=== PATIENT | male | born 1995 | race Caucasian/White ===

== ENCOUNTER 2018-07-22 08:06 | Emergency (ER) | payer OTHER ==
[2018-07-22] MEDS ORDERED: DEXAMETHASONE 10 MG/ML VIAL PO STA (09:06)
[2018-07-22] MEDS ORDERED: BENZOCAINE/MENTHOL LOZENGE MM STA (09:07)
[2018-07-22] MEDS ORDERED: AMOXICILLIN 250 MG CAPSULE PO STA (09:07)
--- NOTE | 2018-07-22 09:09 | ED Physician Documentation ---
History of Present Illness - Stated complaint Stated Complaint: THROAT PX - Chief complaint Chief Complaint: General - Additonal information Additional information: hx from pt healthy AD Cliff male sick for a few weeks with sneezing and cough and congestion s/p visiting family in [place] but more recently since yesterday severe sore throat no abd pain loose stools s diarrhea no NV no rash Review of Systems Constitutional: reports: Myalgias. denies: Fever Throat: reports: Sore throat Respiratory: reports: Cough GI: denies: Abdominal Pain, Nausea, Vomiting, Diarrhea (loose), Bloody / black stool Skin: denies: Rash Immunocompromised: denies: Immunocompromised PD PAST MEDICAL HISTORY - Past Medical History Past Medical History: Yes Psych: Depression, Anxiety - Past Surgical History Past Surgical History: No - Present Medications Home Medications: Ambulatory Orders Medication Instructions Recorded Confirmed Amoxicillin 500 mg PO Q8H #30 capsule 07/22/18 FLUoxetine [PROzac] 10 mg PO DAILY 07/22/18 07/22/18 Methylphenidate HCl [Concerta] 36 mg PO DAILY 07/22/18 07/22/18 - Allergies Allergies/Adverse Reactions: Allergies Allergy/AdvReac Type Severity Reaction Status Date / Time No Known Drug Allergies Allergy Verified 07/22/18 08:23 - Social History Does the pt smoke?: No Smoking Status: Never smoker Does the pt drink ETOH?: No Does the pt have substance abuse?: No - Immunizations Immunizations are current?: Yes - POLST Patient has POLST: No PD ED PE NORMAL - Vitals Vital signs reviewed: Yes - General General: Alert and oriented X 3 - HEENT HEENT: PERRL, Ears normal, Moist mucous membranes. No: Pharynx benign (marked erythema and moderate swelling, no pain with tracheal manipulation + ant cervical adenopathy) - Neck Neck: Supple, no meningeal sign - Cardiac Cardiac: RRR - Respiratory Respiratory: No respiratory distress, Clear bilaterally - Abdomen Abdomen: Soft, Non tender - Derm Derm: No rash - Neuro Neuro: Alert and oriented X 3 Results - Vitals Vitals: Vital Signs - 24 hr 07/22/18 08:14 Temperature 37 C Heart Rate 109 H Blood Pressure 129/76 O2 Saturation 96 - Labs Labs: Laboratory Tests 07/22/18 07/22/18 08:25 08:25 Influenza A (Rapid) Negative Influenza B (Rapid) Negative Group A Strep Rapid POSITIVE H PD MEDICAL DECISION MAKING - Sepsis Event Vital Signs: Vital Signs - 24 hr 07/22/18 08:14 Temperature 37 C Heart Rate 109 H Blood Pressure 129/76 O2 Saturation 96 Departure - Departure Disposition: 01 Home, Self Care Clinical Impression: Strep pharyngitis Condition: Good Instructions: ED Strep Pharyngitis Conf Follow-Up: [facility] [Provider Group] Prescriptions: Amoxicillin 500 mg PO Q8H #30 capsule Comments: The dose of steroid given in the ER will help decrease the pain and swelling until the antibiotic takes effect Motrin and tylenol as needed for pain and fever - throat lozenges or cepacol spray may help the sore throat too Drink plenty of fluids Follow up [facility] if not improving in 3 days Return if worse Forms: Activity restrictions
[2018-07-22] MEDS ORDERED: ACETAMINOPHEN 325 MG TABLET PO STA (09:39)
[2018-07-22 09:42] VITALS: BP 134/65
== END 2018-07-22 10:17 | disposition home or self-care (01) ==
LOC: ED 08:06
DX: J02.0 Streptococcal pharyngitis (principal)
CPT/HCPCS: 87275; 87276; 87430; 99282; 99283; A9270

== ENCOUNTER 2018-07-24 16:44 | Emergency (ER) | payer OTHER ==
[2018-07-24 16:55] VITALS: BP 124/71
--- NOTE | 2018-07-24 17:22 | ED Physician Documentation ---
History of Present Illness - Stated complaint Stated Complaint: DIZZINESS - Chief complaint Chief Complaint: General - History obtained from History obtained from: Patient - History of Present Illness Timing: Today - Additonal information Additional information: 22 y/o male who has recently been treated for strep has developed acute dizziness with room spinning, head spinning and object spinning with intermittent nausea. He has not vomited and he has been hydrating well. He has some improvement in the pain. Review of Systems Constitutional: reports: Fever, Chills, Myalgias, Fatigue, Sweats Eyes: denies: Decreased vision Ears: reports: Tinnitus/ringing. denies: Ear pain Nose: reports: Congestion Throat: reports: Sore throat Cardiac: denies: Chest pain / pressure, Palpitations Respiratory: reports: Cough. denies: Dyspnea GI: reports: Nausea. denies: Abdominal Pain, Vomiting : denies: Dysuria, Frequency Skin: denies: Rash Musculoskeletal: denies: Neck pain, Back pain PD PAST MEDICAL HISTORY - Past Medical History Past Medical History: No Psych: Depression, Anxiety - Past Surgical History Past Surgical History: No - Present Medications Home Medications: Ambulatory Orders Medication Instructions Recorded Confirmed Amoxicillin 500 mg PO Q8H #30 capsule 07/22/18 FLUoxetine [PROzac] 10 mg PO DAILY 07/22/18 07/22/18 Methylphenidate HCl [Concerta] 36 mg PO DAILY 07/22/18 07/22/18 Meclizine HCl [Bonine] 25 mg PO Q6HR PRN #20 tab.chew 07/24/18 - Allergies Allergies/Adverse Reactions: Allergies Allergy/AdvReac Type Severity Reaction Status Date / Time No Known Drug Allergies Allergy Verified 07/24/18 16:55 - Social History Does the pt smoke?: No Smoking Status: Never smoker Does the pt drink ETOH?: No Does the pt have substance abuse?: No - Immunizations Immunizations are current?: Yes - POLST Patient has POLST: No PD ED PE NORMAL - Vitals Vital signs reviewed: Yes (normal ) - General General: Alert and oriented X 3, No acute distress, Well developed/nourished - HEENT HEENT: Atraumatic, PERRL, EOMI, Other (There is cerumen bilaterally and this is removed from the right ear and this improves the patients symptoms immediately with decreased dizziness. The TM is inflamed the TM on the left side and not the right. There is no nystagmus after removal of the cerumen. The pharynx is with erythema and appears angry.) - Neck Neck: Supple, no meningeal sign, No bony TTP - Cardiac Cardiac: RRR, No murmur - Respiratory Respiratory: No respiratory distress, Clear bilaterally - Abdomen Abdomen: Soft, Non tender - Derm Derm: Normal color, Warm and dry, No rash - Extremities Extremities: No deformity, No edema - Neuro Neuro: Alert and oriented X 3, enrollment services dean 2-12 intact, No motor deficit, No sensory deficit, Normal speech Eye Opening: Spontaneous Motor: Obeys Commands Verbal: Oriented GCS Score: 15 - Psych Psych: Normal mood, Normal affect Results - Vitals Vitals: Vital Signs - 24 hr 07/24/18 16:50 Temperature 36.5 C Heart Rate 81 Respiratory 16 Rate Blood Pressure 124/71 O2 Saturation 97 Oxygen O2 Source Room air PD MEDICAL DECISION MAKING - ED course Complexity details: reviewed old records, reviewed results, re-evaluated patient, considered differential, d/w patient ED course: 22-year-old male with a recent diagnosis of strep pharyngitis is on the appropriate antibiotic and he has developed some labyrinthitis and has otitis on exam. His symptoms seem to improve after cerumen was removed from the right ear. We will provide him with some meclizine and a note for 2 more days of work relief. - Sepsis Event Vital Signs: Vital Signs - 24 hr 07/24/18 16:50 Temperature 36.5 C Heart Rate 81 Respiratory 16 Rate Blood Pressure 124/71 O2 Saturation 97 Oxygen O2 Source Room air Departure - Departure Disposition: 01 Home, Self Care Clinical Impression: Labyrinthitis, acute Qualifiers: Laterality: right Qualified Code(s): H83.01 - Labyrinthitis, right ear Condition: Stable Instructions: ED Labyrinthitis Follow-Up: [facility] [Provider Group] Prescriptions: Meclizine HCl [Bonine] 25 mg PO Q6HR PRN #20 tab.chew PRN Reason: Dizziness Forms: Activity restrictions
== END 2018-07-24 17:37 | disposition home or self-care (01) ==
LOC: ED 16:44
DX: H83.01 Labyrinthitis, right ear (principal); H61.21 Impacted cerumen, right ear
CPT/HCPCS: 69210; 99283

== ENCOUNTER 2018-07-29 18:52 | Emergency (ER) | payer OTHER ==
--- NOTE | 2018-07-29 21:20 | ED Physician Documentation ---
PD HPI HEENT - Stated complaint Stated Complaint: MARIA/EAR PX - Chief complaint Chief Complaint: Heent - History obtained from History obtained from: Patient - History of Present Illness Timing - onset: How many days ago (he has had ear and throat pain and was Dx with strep and otitis. On Amox, but has not had improvement. States having marked pain at times in both ears, mostly left. Some ringing in ear today. No general headache.) Timing - details: Gradual onset, Still present, Waxing and waning Location: Right ear, Left ear. No: Sinuses, Throat Associated symptoms: Fever. No: Congestion, Rhinorrhea, Headache, Cough Similar symptoms before: Has not had sx before Recently seen: Emergency Dept Review of Systems Constitutional: reports: Fever, Myalgias Ears: reports: Ear pain, Tinnitus/ringing. denies: Drainage/discharge Nose: reports: Sinus pressure / pain. denies: Rhinorrhea / runny nose, Congestion Throat: denies: Dental pain / toothache, Oral lesions / sores, Sore throat Respiratory: denies: Cough GI: denies: Nausea, Diarrhea Skin: denies: Rash, Lesions PD PAST MEDICAL HISTORY - Past Medical History Cardiovascular: None Respiratory: None Neuro: None Endocrine/Autoimmune: None GI: None : None HEENT: None Psych: Depression, Anxiety, ADD/ADHD Musculoskeletal: None Derm: None - Past Surgical History Past Surgical History: No - Present Medications Home Medications: Ambulatory Orders Medication Instructions Recorded Confirmed Amoxicillin 500 mg PO Q8H #30 capsule 07/22/18 FLUoxetine [PROzac] 10 mg PO DAILY 07/22/18 07/22/18 Methylphenidate HCl [Concerta] 36 mg PO DAILY 07/22/18 07/22/18 Azithromycin [Zithromax] 250 mg PO DAILY #6 tablet 07/29/18 Dexamethasone [Decadron] 4 mg PO DAILY #5 tablet 07/29/18 HYDROcod/ACETAM 5/325 [Hibbs 5/325] 1 tab PO Q6H PRN #15 tablet 07/29/18 - Allergies Allergies/Adverse Reactions: Allergies Allergy/AdvReac Type Severity Reaction Status Date / Time No Known Drug Allergies Allergy Verified 07/29/18 18:59 - Social History Does the pt smoke?: No Smoking Status: Never smoker Does the pt drink ETOH?: Yes Does the pt have substance abuse?: No - Immunizations Immunizations are current?: Yes - POLST Patient has POLST: No PD ED PE NORMAL - Vitals Vital signs reviewed: Yes - General General: Alert and oriented X 3, Well developed/nourished - HEENT HEENT: Pharynx benign. No: Ears normal (both ears have redness and bulging appearance of TM. Mastoid areas without redness nor tenderness to percussion. Right posterior adenopathy. ) - Neck Neck: Supple, no meningeal sign - Cardiac Cardiac: RRR, No murmur - Respiratory Respiratory: Clear bilaterally - Derm Derm: Normal color, Warm and dry, No rash Results - Vitals Vitals: Oxygen O2 Source Room air PD MEDICAL DECISION MAKING - ED course Complexity details: reviewed old records, considered differential (persistent otitis despite Amox. Ear findings are mild compared to degree of pain he describes. No signs of mastoiditis or such. ), d/w patient - Sepsis Event Vital Signs: Oxygen O2 Source Room air Departure - Departure Disposition: Home, Self Care Clinical Impression: Otitis media Qualifiers: Otitis media type: suppurative Chronicity: acute Laterality: bilateral Recurrence: recurrent Spontaneous tympanic membrane rupture: without spontaneous rupture Qualified Code(s): H66.006 - Acute suppurative otitis media without spontaneous rupture of ear drum, recurrent, bilateral Condition: Stable Record reviewed to determine appropriate education?: Yes Instructions: ED Otitis Media Acute Adult Follow-Up: [facility] [Provider Group] Prescriptions: Azithromycin [Zithromax] 250 mg PO DAILY #6 tablet Dexamethasone [Decadron] 4 mg PO DAILY #5 tablet HYDROcod/ACETAM 5/325 [Hibbs 5/325] 1 tab PO Q6H PRN #15 tablet PRN Reason: Pain Comments: Stop the amoxicillin if you are still on it. Change to Zithromax antibiotic as the ear infections appear to be still persisting despite the first antibiotic. Add Decadron steroid anti-inflammatory for the next 5 days. Add Tylenol or hydrocodone if needed for pain. You can use some ibuprofen twice daily as well. Rest off work for 1-2 days. Recheck with your primary if not improved over the next couple of days. Forms: Activity restrictions Discharge Date/Time: 07/29/18 22:19
[2018-07-29] MEDS ORDERED: AZITHROMYCIN 250 MG TABLET PO STA (21:54)
[2018-07-29] MEDS ORDERED: HYDROcod/ACETAM 5/325 MG TABLET PO STA (21:54)
[2018-07-29] MEDS ORDERED: DEXAMETHASONE 10 MG/ML VIAL PO STA (21:54)
[2018-07-29 22:18] VITALS: BP 133/88
== END 2018-07-29 22:19 | disposition home or self-care (01) ==
LOC: ED 18:52
DX: H66.006 Acute suppurative otitis media without spontaneous rupture of ear drum, recurrent, bilateral (principal)
CPT/HCPCS: 99283; A9270

== ENCOUNTER 2019-02-12 21:38 | Emergency (ER) | payer OTHER ==
[2019-02-12 21:45] VITALS: BP 145/69
--- NOTE | 2019-02-12 21:46 | ED Physician Documentation ---
PD HPI ABD PAIN - Stated complaint Stated Complaint: LT SIDE TENDERNESS - Chief complaint Chief Complaint: General - History obtained from History obtained from: Patient - History of Present Illness Timing - onset: How many days ago (3) Timing - duration: Days (3) Timing - details: Gradual onset Pain level max: 8 Pain level now: 0 Quality: Pain Location: Other (left chest (immediately posterior to left nipple/areola)) Recently seen: Not recently seen - Additional information Additional information: 3 days ago, noticed mildly tender swelling under surface of left areola/nipple. This rapidly increased in size, and became exquisitely tender with mild discoloration over the ensuing 2 days, although today the symptoms have greatly improved. There is still a palpable, mildly tender mass but it is no longer discolored and far less painful/tender than yesterday. Denies injury, denies h/o similar symptoms Review of Systems Constitutional: denies: Fever Skin: reports: Lesions PD PAST MEDICAL HISTORY - Past Medical History Cardiovascular: None Respiratory: None Neuro: None Endocrine/Autoimmune: None GI: None : None HEENT: None Psych: Depression, Anxiety, ADD/ADHD Musculoskeletal: None Derm: None - Past Surgical History Past Surgical History: No - Present Medications Home Medications: Ambulatory Orders Medication Instructions Recorded Confirmed Methylphenidate HCl [Concerta] 36 mg PO DAILY 07/22/18 07/22/18 Cephalexin [Keflex] 500 mg PO Q6H #27 capsule 02/12/19 - Allergies Allergies/Adverse Reactions: Allergies Allergy/AdvReac Type Severity Reaction Status Date / Time No Known Drug Allergies Allergy Verified 07/29/18 18:59 - Social History Does the pt smoke?: No Smoking Status: Never smoker Does the pt drink ETOH?: Yes Does the pt have substance abuse?: No - Immunizations Immunizations are current?: Yes - POLST Patient has POLST: No PD ED PE NORMAL - Vitals Vital signs reviewed: Yes - General General: Alert and oriented X 3, No acute distress, Well developed/nourished PD ED PE EXPANDED - Derm Derm: Other (approximately 1 cm diameter nodule palpated subcutaneous to left nipple and areola with mild tenderenss, no fluctuance, and no erythema) Results - Vitals Vitals: Vital Signs - 24 hr 02/12/19 21:41 Temperature 36.6 C Heart Rate 82 Respiratory 16 Rate Blood Pressure 145/69 H O2 Saturation 99 Oxygen O2 Source Room air PD MEDICAL DECISION MAKING - ED course Complexity details: considered differential, d/w patient Departure - Departure Disposition: 01 Home, Self Care Clinical Impression: Infected cyst of skin Condition: Good Instructions: ED Cyst Sebaceous Infec Abx Tx Follow-Up: [facility] [Provider Group] Prescriptions: Cephalexin [Keflex] 500 mg PO Q6H #27 capsule Discharge Date/Time: 02/12/19 22:10
[2019-02-12] MEDS ORDERED: cephALEXin 250 MG CAPSULE PO STA (22:01)
== END 2019-02-12 22:10 | disposition home or self-care (01) ==
LOC: ED 21:38
DX: L72.8 Other follicular cysts of the skin and subcutaneous tissue (principal); L08.9 Local infection of the skin and subcutaneous tissue, unspecified
CPT/HCPCS: 99283; A9270

== ENCOUNTER 2019-12-21 16:50 | Emergency (ER) | payer OTHER ==
--- NOTE | 2019-12-21 17:09 | ED Physician Documentation ---
PD HPI LOWER EXT INJURY - Stated complaint Stated Complaint: LT KNEE INJ - Chief complaint Chief Complaint: Trauma Ext - History obtained from History obtained from: Patient - History of Present Illness PD HPI LOW EXT INJURY LOCATION: Left, Knee Type of injury: Twist Where injury occurred: Home Timing - onset: Yesterday Timing - details: Abrupt onset Pain level max: 7 Pain level now: 6 Improved by: Rest, Ice, Immobilization Worsened by: Moving, Palpating Associated symptoms: No: Weakness, Numbness, Tingling, Swelling, Discolored Similar symptoms before: Has not had sx before Recently seen: Not recently seen Review of Systems Constitutional: denies: Fever, Chills Skin: denies: Rash Musculoskeletal: denies: Neck pain, Back pain Neurologic: denies: Headache PD PAST MEDICAL HISTORY - Past Medical History Cardiovascular: None Respiratory: None Neuro: None Endocrine/Autoimmune: None GI: None : None HEENT: None Psych: Depression, Anxiety, ADD/ADHD Musculoskeletal: None Derm: None - Past Surgical History Past Surgical History: No HEENT: Tonsil/Adenoidectomy - Present Medications Home Medications: Ambulatory Orders Medication Instructions Recorded Confirmed Methylphenidate HCl [Concerta] 36 mg PO DAILY 07/22/18 12/21/19 - Allergies Allergies/Adverse Reactions: Allergies Allergy/AdvReac Type Severity Reaction Status Date / Time No Known Drug Allergies Allergy Verified 12/21/19 16:53 - Social History Does the pt smoke?: No Smoking Status: Never smoker Does the pt drink ETOH?: Yes Does the pt have substance abuse?: No - Immunizations Immunizations are current?: Yes - POLST Patient has POLST: No PD ED PE NORMAL - Vitals Vital signs reviewed: Yes - General General: Alert and oriented X 3, No acute distress - HEENT HEENT: Moist mucous membranes - Neck Neck: Supple, no meningeal sign - Derm Derm: Warm and dry - Extremities Extremities: Other (L knee - mild MCL laxity, LCL, ACL, PCL intact. mild effusion. unable to tolerate meniscus testing. NVI) - Neuro Neuro: Alert and oriented X 3 Results - Vitals Vitals: Vital Signs - 24 hr 12/21/19 12/21/19 16:54 18:17 Temperature 36.6 C 37 C Heart Rate 96 91 Respiratory 16 12 Rate Blood Pressure 135/72 H 128/74 O2 Saturation 100 97 Oxygen O2 Source Room air - Rads (name of study) L knee xray Radiology: Prelim report reviewed, EMP read contemporaneously, See rad report (Normal knee x-ray) PD MEDICAL DECISION MAKING - ED course Complexity details: reviewed results, re-evaluated patient, considered differential, d/w patient ED course: Patient with what appears to be a knee sprain. Placed in an articulating knee brace. Ambulating well. Patient counseled regarding signs and symptoms for which I believe and urgent re-evaluation would be necessary. Patient with good understanding of and agreement to plan and is comfortable going home at this time This document was made in part using voice recognition software. While efforts are made to proofread this document, sound alike and grammatical errors may occur. Departure - Departure Disposition: 01 Home, Self Care Clinical Impression: Left knee sprain Qualifiers: Encounter type: initial encounter Involved ligament of knee: unspecified ligament Qualified Code(s): S83.92XA - Sprain of unspecified site of left knee, initial encounter Condition: Good Instructions: ED Sprain Knee Follow-Up: [facility] [Primary Care Provider] - Within 1 week Comments: Your x-ray does not show any acute abnormalities today. It appears that you have sprained your medial collateral ligament. Follow-up with your doctor for further care. Use the brace to help with the stability. You can use Motrin or Tylenol as needed for pain. Discharge Date/Time: 12/21/19 18:18
--- NOTE | 2019-12-21 17:42 | XRAY Report ---
Reason: L knee twist yesterday, medial pain Procedure Date: 12/21/2019 Accession Number: [id number] / [id number] Procedure: XR - Knee 4 View LT CPT Code: Final Report FULL RESULT: EXAM: LEFT KNEE RADIOGRAPHY EXAM DATE: 12/21/2019 05:23 PM. CLINICAL HISTORY: Left medial knee pain after twisting injury yesterday COMPARISON: None. TECHNIQUE: 4 views. FINDINGS: Bones: No fracture or bone lesion. Joints: Normal alignment. Joint spaces are maintained. No effusion. Soft Tissues: Normal. No soft tissue swelling. IMPRESSION: Normal knee radiography. [facility]
[2019-12-21 18:18] VITALS: BP 128/74
== END 2019-12-21 18:18 | disposition home or self-care (01) ==
LOC: ED 16:50
DX: S83.92XA Sprain of unspecified site of left knee, initial encounter (principal); X50.1XXA Overexertion from prolonged static or awkward postures, initial encounter; Y92.000 Kitchen of unspecified non-institutional (private) residence as the place of occurrence of the external cause
CPT/HCPCS: 99283; 99284

== ENCOUNTER 2020-02-14 11:07 | Emergency (ER) | payer OTHER ==
--- NOTE | 2020-02-14 11:13 | ED Physician Documentation ---
PD HPI URI - Stated complaint Stated Complaint: SORE THROAT - History obtained from History obtained from: Patient - History of Present Illness Timing - onset: How many days ago (2) Timing duration: Days (2) Timing details: Abrupt onset, Still present (The patient states he has had some sinus congestion and nasal drainage and a little bit of a tickle cough. He also has had some 1 or 2 drinks of alcohol on and states he vomited shortly after that. He noted some discomfort in the throat and the following day still had a sore throat with swallowing and noted some specks of blood in his sputum clear in his throat and with a mild cough. That happened again this morning. He was concerned about it. He denied vomiting per se nor a deep cough but seemed to be hurting just in the back of his throat. He states it feels like swallowing razor blades when he swallows.) Associated symptoms: Nasal congestion, Sore throat. No: Fever, Dry cough Contributing factors: Other (He does feel he has an element of environmental allergies and has had some sinus congestion and postnasal drip. He is concerned he is getting irritation of the throat from chemical exposures at work and states he is given just very simple facemask when exposed to the chemicals.). No: Sick contact, Travel Worsened by: Other (swallowing) Recently seen: Not recently seen Review of Systems Constitutional: denies: Fever, Chills Nose: reports: Rhinorrhea / runny nose, Sinus pressure / pain Throat: reports: Sore throat Respiratory: denies: Dyspnea, Cough GI: denies: Nausea, Vomiting, Bloody / black stool Skin: denies: Rash, Lesions PD PAST MEDICAL HISTORY - Past Medical History Cardiovascular: None Respiratory: None Neuro: None Endocrine/Autoimmune: None GI: None : None HEENT: None Psych: Depression, Anxiety, ADD/ADHD Musculoskeletal: None Derm: None - Past Surgical History Past Surgical History: No HEENT: Tonsil/Adenoidectomy - Present Medications Home Medications: Ambulatory Orders Medication Instructions Recorded Confirmed Methylphenidate HCl [Concerta] 36 mg PO DAILY 07/22/18 02/14/20 Cetirizine [ZyrTEC] 10 mg PO 02/14/20 Cetirizine [ZyrTEC] 10 mg PO DAILY #30 tablet 02/14/20 Lidocaine Viscous 2% [Xylocaine 5 ml PO Q4H PRN #100 ml 02/14/20 Viscous 2%] dexAMETHasone [Decadron] 4 mg PO DAILY #5 tablet 02/14/20 - Allergies Allergies/Adverse Reactions: Allergies Allergy/AdvReac Type Severity Reaction Status Date / Time No Known Drug Allergies Allergy Verified 02/14/20 11:20 - Social History Does the pt smoke?: No Smoking Status: Never smoker Does the pt drink ETOH?: Yes Does the pt have substance abuse?: No - Immunizations Immunizations are current?: Yes - POLST Patient has POLST: No PD ED PE NORMAL - Vitals Vital signs reviewed: Yes - General General: Alert and oriented X 3, No acute distress (He does appear uncomfortable with swallowing.), Well developed/nourished - HEENT HEENT: Ears normal. No: Pharynx benign (There is some redness in the posterior pharynx without any exudate nor focal swelling. The neck does not have any adenopathy. Nasal mucosa does show some inflammatory swelling along the medial wall particularly on the left. There is no obvious source of bleeding from there.) - Neck Neck: Supple, no meningeal sign - Cardiac Cardiac: RRR, No murmur - Respiratory Respiratory: Clear bilaterally Results - Vitals Vitals: Vital Signs - 24 hr 02/14/20 02/14/20 02/14/20 11:15 12:14 12:26 Temperature 36.8 C Heart Rate 63 91 75 Respiratory 20 20 Rate Blood Pressure 133/72 H O2 Saturation 97 100 100 Oxygen O2 Source Room air - Labs Labs: Laboratory Tests 02/14/20 11:44 Group A Strep Rapid Negative PD MEDICAL DECISION MAKING - ED course Complexity details: considered differential (It does not look bacterial infection at this point. Rapid strep was negative and the culture is pending. I think he may be having an element of esophagitis from having vomited the couple of days ago and likely has some element of postnasal drip and sinus inflammation from allergies. It is less likely is having irritation from chemical inhalation. He states at work it is mostly been strong eye specialist of bleach and ammonia because of the current pandemic issue. I doubt that would make his throat raw to that degree. We can treat with some antacid and lidocaine to help with the pain of swallowing and also some antihistamines for potential allergies. I would anticipate improvement in the next day or 2), d/w patient Departure - Departure Disposition: 01 Home, Self Care Clinical Impression: Pharyngitis Qualifiers: Pharyngitis/tonsillitis etiology: unspecified etiology Qualified Code(s): J02.9 - Acute pharyngitis, unspecified Condition: Stable Record reviewed to determine appropriate education?: Yes Instructions: ED Strep Pharyngitis Poss Follow-Up: [facility] [Primary Care Provider] - Prescriptions: Cetirizine [ZyrTEC] 10 mg PO DAILY #30 tablet dexAMETHasone [Decadron] 4 mg PO DAILY #5 tablet Lidocaine Viscous 2% [Xylocaine Viscous 2%] 5 ml PO Q4H PRN #100 ml PRN Reason: Pain Comments: Rapid strep test is negative. The culture result in 2 to 3 days and will call you if there is any signs of bacterial infection. At this point would assume i ts potential either viral illness which sounds less likely or environmental irritations (chemical inhalation or seasonal allergies). At work you could use a chemical filter respirator. We will also put you on medications for allergies of cetirizine daily for a month and right now Decadron anti-inflammatory to decrease irritation. Use some antacid such as Mylanta or so to coat the throat and may have it less sore and combined with lidocaine as needed for discomfort. Add Tylenol if needed for pains. Recheck if not improving over the next few days. Discharge Date/Time: 02/14/20 12:26
[2020-02-14 11:22] VITALS: BP 133/72
[2020-02-14] MEDS ORDERED: LIDOCAINE VISCOUS 2% 15 ML UDC MM STA (11:49)
[2020-02-14] MEDS ORDERED: CETIRIZINE 10 MG TABLET PO STA (11:49)
[2020-02-14] MEDS ORDERED: MAG HYDROX/AL HYDROX/SIMETH 30 ML UDC PO STA (11:49)
[2020-02-14] MEDS ORDERED: CHERRY SYRUP 10 ML UDC PO ONE (11:49)
[2020-02-14] MEDS ORDERED: DEXAMETHASONE 10 MG/ML VIAL PO STA (11:49)
[2020-02-14 12:10] LABS: RAPID STREP SCREEN Negative (Negative)
== END 2020-02-14 12:26 | disposition home or self-care (01) ==
LOC: ED 11:07
DX: J02.0 Streptococcal pharyngitis (principal)
CPT/HCPCS: 87070; 87077; 87430; 99283; A9270

== ENCOUNTER 2020-10-15 20:48 | Emergency (ER) | payer OTHER ==
[2020-10-15 21:14] LABS: BILIRUBIN,URINE NEGATIVE (NEGATIVE); GLUCOSE, URINE (UA) NEGATIVE (NEGATIVE); KETONES,URINE (UA) TRACE mg/dL (NEGATIVE); LEUKOCYTE ESTERASE, URINE NEGATIVE (NEGATIVE); NITRITE,URINE NEGATIVE (NEGATIVE); OCCULT BLOOD,URINE NEGATIVE (NEGATIVE); PROTEIN,URINE NEGATIVE (NEGATIVE); UROBILINOGEN,URINE 0.2 (NORMAL) E.U./dL (NORMAL)
[2020-10-15 21:16] LABS: CLARITY,URINE CLEAR (CLEAR)
--- NOTE | 2020-10-15 21:24 | ED Physician Documentation ---
PD HPI ABD PAIN - Stated complaint Stated Complaint: ABD PX/NAUSEA/FEELING TO USE BATHROOM - Chief complaint Chief Complaint: Abd Pain - History obtained from History obtained from: Patient - History of Present Illness Timing - onset: Today Timing - details: Abrupt onset, Intermittant Pain level max: 8 Pain level now: 0 Quality: Pain Location: Other (lower abdomen, predominantly midline) Improved by: Position Worsened by: Other (no exacerbating factors) Associated symptoms: Nausea. No: Fever, Vomiting, Diarrhea, Constipation, Melena, Hematochezia, Dysuria Recently seen: Not recently seen - Additional information Additional information: patient has had frequent nausea over past 2-3 weeks without emesis. his chief complaint tonight is episodic sharp abdominal pain across lower abdomen but predominantly midline. He has complete resolution between episodes which have no apparent inciting factors. Review of Systems Constitutional: denies: Fever, Chills, Sweats Cardiac: reports: Reviewed and negative Respiratory: reports: Reviewed and negative GI: reports: Abdominal Pain, Nausea. denies: Abdominal Swelling, Vomiting, Constipation, Diarrhea, Hematemesis, Bloody / black stool : denies: Dysuria, Frequency PD PAST MEDICAL HISTORY - Past Medical History Cardiovascular: None Respiratory: None Neuro: None Endocrine/Autoimmune: None GI: None : None HEENT: None Psych: Depression, Anxiety, ADD/ADHD Musculoskeletal: None Derm: None - Past Surgical History Past Surgical History: No HEENT: Tonsil/Adenoidectomy - Present Medications Home Medications: Ambulatory Orders Medication Instructions Recorded Confirmed No Known Home Medications 10/15/20 10/15/20 - Allergies Allergies/Adverse Reactions: Allergies Allergy/AdvReac Type Severity Reaction Status Date / Time No Known Drug Allergies Allergy Verified 10/15/20 20:59 - Social History Does the pt smoke?: No Smoking Status: Never smoker Does the pt drink ETOH?: Yes Does the pt have substance abuse?: No - Immunizations Immunizations are current?: Yes - POLST Patient has POLST: No PD ED PE NORMAL - Vitals Vital signs reviewed: Yes - General General: Alert and oriented X 3, No acute distress, Well developed/nourished - HEENT HEENT: Moist mucous membranes - Neck Neck: Supple, no meningeal sign - Cardiac Cardiac: RRR, No murmur - Respiratory Respiratory: No respiratory distress, Clear bilaterally - Abdomen Abdomen: Soft, Non distended, Other (mild TTP across lower abdomen without rebound or guarding) - Back Back: No CVA TTP - Derm Derm: Normal color, Warm and dry Results - Vitals Vitals: Oxygen O2 Source Room air - Labs Labs: Laboratory Tests 10/15/20 10/15/20 10/15/20 21:06 22:10 22:10 WBC 8.6 RBC 5.65 Hgb 16.7 Hct 51.0 MCV 90.3 MCH 29.6 MCHC 32.7 RDW 11.4 L Plt Count 281 MPV 9.2 Neut # (Auto) 7.4 H Lymph # (Auto) 0.[address] [place] # (Auto) 0.4 Eos # (Auto) 0.0 Baso # (Auto) 0.0 Absolute Nucleated RBC 0.00 Nucleated RBC % 0.0 Sodium 136 Potassium 4.5 Chloride 99 L Carbon Dioxide 27 Anion Gap 10.0 BUN 16 Creatinine 1.1 Estimated GFR (MDRD) 82 L Glucose 134 H Calcium 9.6 Total Bilirubin 0.8 AST 22 ALT 14 Alkaline Phosphatase 103 Total Protein 7.7 Albumin 4.8 Globulin 2.9 Albumin/Globulin Ratio 1.7 Lipase 21 L Urine Color YELLOW Urine Clarity CLEAR Urine pH 6.0 Ur Specific Davis >=1.030 H Urine Protein NEGATIVE Urine Glucose (UA) NEGATIVE Urine Ketones TRACE Urine Occult Blood NEGATIVE Urine Nitrite NEGATIVE Urine Bilirubin NEGATIVE Urine Urobilinogen 0.2 (NORMAL) Ur Leukocyte Esterase NEGATIVE Ur Microscopic Review NOT INDICATED Urine Culture Comments NOT INDICATED - Rads (name of study) CT A/P Radiology: Prelim report reviewed, See rad report PD MEDICAL DECISION MAKING - ED course Complexity details: reviewed results, re-evaluated patient, considered differential, d/w patient Departure - Departure Disposition: 01 Home, Self Care Clinical Impression: Enterocolitis Condition: Good Instructions: ED Gastroenteritis Non Infec Follow-Up: JOSE ORTIZ MD [Primary Care Provider] - Within 3 Days Discharge Date/Time: 10/16/20 01:18
[2020-10-15] MEDS ORDERED: ONDANSETRON 4 MG/2 ML VIAL IVP STA (21:49)
[2020-10-15] MEDS ORDERED: SODIUM CHLORIDE 0.9% 1,000 ML IV STA (21:49)
[2020-10-15] MEDS ORDERED: IOVERSOL 320 100 ML VIAL IVP ONE ×2 (22:14→23:01)
[2020-10-15 22:19] LABS: BASOPHILS % (AUTO) 0.1 %; EOSINOPHILS % (AUTO) 0.1 %; HGB - HEMOGLOBIN 16.7 g/dL (14.0-18.0); LYMPHOCYTES # (AUTO) 0.8 10^3/uL (1.5-3.5); LYMPHOCYTES % (AUTO) 9.4 %; MEAN CORPUSCULAR HEMOGLOBIN 29.6 pg (27.0-31.0); MEAN CORPUSCULAR HGB CONC 32.7 g/dL (32.0-36.0); MEAN CORPUSCULAR VOLUME 90.3 fL (80.0-94.0); MEAN PLATELET VOLUME 9.2 fL (7.4-11.4); MONOCYTES # (AUTO) 0.4 10^3/uL (0.0-1.0); MONOCYTES % (AUTO) 4.3 %; NEUTROPHILS # (AUTO) 7.4 10^3/uL (1.5-6.6); NEUTROPHILS % (AUTO) 85.8 %; PLT - PLATELET COUNT 281 10^3/uL (130-450); RED BLOOD COUNT 5.65 10^6/uL (4.70-6.10); RED CELL DISTRIBUTION WIDTH 11.4 % (12.0-15.0); WHITE BLOOD COUNT 8.6 x10^3/uL (4.8-10.8)
[2020-10-15 22:32] LABS: ALBUMIN 4.8 g/dL (3.2-5.5); ALBUMIN/GLOBULIN RATIO 1.7 (1.0-2.2); BILIRUBIN,TOTAL 0.8 mg/dL (0.2-1.0); CALCIUM 9.6 mg/dL (8.5-10.3); CREATININE 1.1 mg/dL (0.6-1.2); TOTAL PROTEIN 7.7 g/dL (6.7-8.2)
[2020-10-16 01:20] VITALS: BP 124/78
--- NOTE | 2020-10-16 08:41 | CT Report ---
PROCEDURE: Abdomen/Pelvis W INDICATIONS: abd. pain CONTRAST: IV CONTRAST: Optiray 320 ml: 100 PO CONTRAST: *NO PO CONTRAST TECHNIQUE: After the administration of IV contrast, 5 mm thick sections acquired from the diaphragms to the symp hysis. 5 mm thick coronal and sagittal reformats were acquired. For radiation dose reduction, the f ollowing was used: automated exposure control, adjustment of mA and/or kV according to patient size. COMPARISON: None. FINDINGS: Image quality: Excellent. ABDOMEN: Lung bases: Lung bases are clear. Heart size is normal. Solid organs: Liver and spleen are normal in size and enhancement. Gallbladder unremarkable Biliar y system is non dilated. Pancreas enhances normally. No adrenal nodules. Kidneys demonstrate jessee l size and enhancement, without hydronephrosis. Peritoneum and bowel: scattered air-fluid levels are present. No free fluid or air. There is minimal diffuse colonic mural thickening. Incidentally noted colonic diverticuli. Normal appendix Nodes and vessels: No retroperitoneal or mesenteric adenopathy by size criteria. Aorta and inferior vena cava are normal in size. Miscellaneous: No ventral hernias. PELVIS: Genitourinary: Bladder wall thickness is normal. Trace pelvic fluid. Miscellaneous: No inguinal hernias or adenopathy. Bones: No suspicious bony lesions. No vertebral body compression fractures. IMPRESSION: Findings raise the possibility of mild enterocolitis Findings are concordant with the preliminary study interpretation provided at the time of the study. Reviewed by: Abdirahman Rodriguez MD on 10/16/2020 8:40 AM PST Approved by: Abdirahman Rodriguez MD on 10/16/2020 8:40 AM PST Station ID: [id number]
== END 2020-10-16 01:18 | disposition home or self-care (01) ==
LOC: ED 20:48
DX: K52.9 Noninfective gastroenteritis and colitis, unspecified (principal)
CPT/HCPCS: 36415; 74177; 80053; 81003; 83690; 85025; 96361; 96374; 99284; Q9967; 81001; 87086

== ENCOUNTER 2022-06-06 17:59 | Outpatient (CLI) | payer OTHER ==
[2022-06-06 23:36] LABS: CHLAMYDIA TRACHOMATIS DNA NEGATIVE (NEGATIVE); NEISSERIA GONORRHOEAE DNA NEGATIVE (NEGATIVE)
[2022-06-08 04:08] LABS: HCV AB 0.1 s/co ratio (0.0-0.9)
[2022-06-08 05:11] LABS: RPR Non Reactive (Non Reactive)
[2022-06-08 06:09] LABS: HIV SCREEN 4TH GENERATION Non Reactive (Non Reactive)
== END 2022-06-06 18:00 | disposition home or self-care (01) ==
LOC: LAB.N 17:59
PROVIDERS: ATTEND Physician Assistant Medical
DX: Z11.3 Encounter for screening for infections with a predominantly sexual mode of transmission (principal)
CPT/HCPCS: 36415; 86592; 86803; 87389; 87491; 87591; 87661

== ENCOUNTER 2023-09-16 11:57 | Outpatient (CLI) | payer OTHER ==
--- NOTE | 2023-09-16 18:35 | XRAY Report ---
PROCEDURE: Chest 2 View X-Ray INDICATIONS: ACUTE UPPER RESPIRATORY INFECTION TECHNIQUE: 2 views of the chest were acquired. COMPARISON: None. FINDINGS: Surgical changes and devices: None. Lungs and pleura: An incomplete inspiratory result is noted, with low lung volumes and crowding of t he vascular markings. No focal infiltrates are seen. No large pneumothorax or large pleural effusion can be seen. Mediastinum: Mediastinal contours appear normal. Heart size is normal. Bones and chest wall: No suspicious bony lesions. Overlying soft tissues appear unremarkable. IMPRESSION: Low lung volumes, without an acute cardiopulmonary abnormality seen on these plain films. Reviewed by: Nicolas Padilla MD on 09/16/2023 5:33 PM [facility] Approved by: Nicolas Padilla MD on 09/16/2023 5:33 PM [facility] Station ID: [id number]
== END 2023-09-16 11:58 | disposition home or self-care (01) ==
LOC: DI 11:57
PROVIDERS: ATTEND Nurse Practitioner
DX: J06.9 Acute upper respiratory infection, unspecified (principal)

== ENCOUNTER 2023-11-13 09:30 | Outpatient (CLI) | payer OTHER ==
[2023-11-13 20:27] LABS: SARS-CoV-2 -RESP PCR PANEL DETECTED
[2023-11-13 20:28] LABS: INFLUENZA A- RESP PCR PANEL NOT DETECTED; INFLUENZA B - RESP PCR PANEL NOT DETECTED; RSV- RESP PCR PANEL NOT DETECTED
== END 2023-11-13 09:45 | disposition home or self-care (01) ==
LOC: LAB.N 09:30
PROVIDERS: ATTEND Registered Nurse
DX: U07.1 COVID-19 (principal)
CPT/HCPCS: 87637

== ENCOUNTER 2024-02-07 08:16 | Emergency (ER) | payer OTHER ==
--- NOTE | 2024-02-07 08:41 | ED Physician Documentation ---
PD HPI BACK PAIN - Stated complaint Stated Complaint: BACK PX,DISCOMFORT - Chief complaint Chief Complaint: Back Pain - History obtained from History obtained from: Patient - History of Present Illness Timing - onset: How many months ago (has had recurring back pain since last fall. Prior signficiant back injury with weight lifting over 3oo lbs and had pain for several months in 2018. Did okay with mild pains at times until past several months with more consistent pains. Worse past few weeks.) Timing - details: Gradual onset, Still present, Waxing and waning (worse the pas t few weeks.) Quality: Pain, Aching Associated symptoms: Numbness (at times back of lower leg and outer left foot. No weakness.). No: Fever, Weakness Improves with: Rest Worsened by: Movement, Lifting, Twisting. No: Palpation Contributing factors: Lifting, Twisting. No: Trauma (not recent.) Similar symptoms before: No diagnosis (back injury with heavy lifting 2018 per pt. No more recent injury.) Recently seen[place] No Rx given as yet other than Ibuprofen.) Review of Systems Constitutional: denies: Fever, Chills : denies: Incontinent Musculoskeletal: reports: Back pain. denies: Neck pain Neurologic: reports: Numbness. denies: Focal weakness PD PAST MEDICAL HISTORY - Past Medical History Cardiovascular: None Respiratory: None Neuro: None Endocrine/Autoimmune: None GI: None : None HEENT: None Psych: Depression, Anxiety, ADD/ADHD Musculoskeletal: None Derm: None - Past Surgical History Past Surgical History: No HEENT: Tonsil/Adenoidectomy - Present Medications Home Medications: Ambulatory Orders Medication Instructions Recorded Confirmed HYDROcod/ACETAM 5/325 [[place] 5/325] 1 ea PO Q8H PRN #20 tablet 02/07/24 Lidocaine Patch 5% [Lidoderm Patch] 1 patch TOP DAILY PRN #10 patch 02/07/24 Meloxicam [Mobic] 7.5 mg PO BID 10 Days #20 tablet 02/07/24 Methylphenidate HCl [Concerta] 1 tab PO DAILY 02/07/24 02/07/24 methocarbamoL [Robaxin] 500 mg PO Q6H PRN #30 tablet 02/07/24 - Allergies Allergies/Adverse Reactions: Allergies Allergy/AdvReac Type Severity Reaction Status Date / Time No Known Drug Allergies Allergy Verified 02/07/24 08:30 - Social History Does the pt smoke?: No Smoking Status: Never smoker Does the pt drink ETOH?: Yes Does the pt have substance abuse?: No - Immunizations Immunizations are current?: Yes - POLST Patient has POLST: No PD ED PE NORMAL - Vitals Vital signs reviewed: Yes - General General: Alert and oriented X 3, Well developed/nourished, Other (appears in pain with guarded ROM of the low back. ) - Abdomen Abdomen: Soft, Non tender - Back Back: No CVA TTP, Other (tender in paralumbar muscles left and right, more to the left. Trigger point of tender longissimus areas left paralumbar. ) - Derm Derm: Normal color, Warm and dry - Neuro Neuro: Alert and oriented X 3, No motor deficit, Normal speech, Other (he states general less sensation to touch on left leg not just dermatomal pattern. ) Results - Vitals Vitals: Vital Signs - 24 hr 02/07/24 10:51 Heart Rate 74 Respiratory 18 Rate Blood Pressure 133/64 H O2 Saturation 96 Oxygen O2 Source Room air PD Medical Decision Making - ED course Complexity details: reviewed results (we got MRI report from [place], which was more useful for me than the images per se, and DI was having trouble loading the images onto our PACS anyway. ), re-evaluated patient (he was given IM meds here due to degree of current pain with IM toradol and Dilaudid. But also I did trigger injection left lumbar muscle with Kenalog and Lidocain wihtout problems. Lido patch to main area after that.), considered differential (he has had pain in lumbar area with radiation to left lposterior leg. No weakness. Had outpt MRI lumbar done at [facility] yesterday without results as yet. Hurting more today so here to ER. H ebrought disc copy of the images with him. ), d/w patient Reviewed Lab Results: his MRI lumbar report from [place] showed large paracentric disc extrusion L5/S1 with encroachment of left neural foramina. Mild extrusion disc at >4?5 area as well. No notable encroachment on central canal. The MRI corresponds to area of pain and the extension of it to >5 area of left leg/foot in particular. Can treat with combo NSAIDs, muscle relaxants, pain meds and to see PCP for PT refrral and presume back specialist referral. Departure - Departure Disposition: 01 Home, Self Care Clinical Impression: Back pain, Sciatica, Lumbar disc herniation Condition: Stable Record reviewed to determine appropriate education?: Yes Instructions: ED Sciatica Follow-Up: ELADIA Broussard [Provider Group] Prescriptions: Lidocaine Patch 5% [Lidoderm Patch] 1 patch TOP DAILY PRN #10 patch PRN Reason: pain Meloxicam [Mobic] 7.5 mg PO BID 10 Days #20 tablet HYDROcod/ACETAM 5/325 [[place] 5/325] 1 ea PO Q8H PRN #20 tablet PRN Reason: Pain methocarbamoL [Robaxin] 500 mg PO Q6H PRN #30 tablet PRN Reason: Spasms Comments: The report from your MRI done yesterday at [facility] does state there is a large disc extrusion at the L5/S1 level causing mainly left-sided nerve root impingement. This corresponds with your sciatic symptoms of pain and some numbness down the left leg. It is most likely there is been some element of disc extrusion over time and could relate to the injury you had years ago. Some disc protrusions/herniations are relatively common on MRI and CT findings even in people without back pain. However given the degree of disc herniation corresponding with the area of pain and numbness you are having, it does sound like it is probably more out recently than had been. Commonly there can be some inflammation of the disc as well as muscle spasms around it that contribute to added symptoms. We typically would go with a combination of some anti-inflammatory and muscle relaxant as well as adding in pain medicine as needed. You can try a topical patch as well. Given the report of the disc herniation, I would presume your primary care would want to refer you to a back specialist to evaluate whether any interventions locally are appropriate such as disc injections, surgical interventions etc. Call your primary care to update on the findings and presume get a referral for a back specialist. Meanwhile off work for the next several days. I wrote prescriptions and sent them to the [facility] in [place]. Heat stretching and gentle activity are okay. Avoid heavy lifting of course. Physical therapy would be appropriate as well. I am prescribing a short course of narcotic pain medication for you. These are potentially dangerous and addictive medications that should be used carefully. These medications may constipate you. Take an [id number] stool softener such as docusate twice daily with plenty of water while taking these medications. If you go 24 hours without a bowel movement, take [id number] MiraLAX, per package instructions. Do not drink or drive while taking these medications. If you received narcotic or sedating medications while in the emergency department do not drive for 24 hours. Store this medication in a safe, secure place and out of reach of children. It is a violation of federal law to give or sell this medication to another person or to use in a manner other than prescribed. The ED will not refill narcotic prescriptions, including prescriptions lost or stolen. You can dispose of unwanted medications at the [facility]'s office or at several pharmacies such as [facility]. Forms: Activity restrictions Discharge Date/Time: 02/07/24 10:51
[2024-02-07] MEDS: LIDOCAINE PATCH 5% TOP STA (09:50)
[2024-02-07] MEDS: KETOROLAC 30 MG/ML VIAL IM STA (09:51)
[2024-02-07] MEDS: HYDROmorphone 1 MG/ML CARPUJECT IM STA (09:51)
[2024-02-07] MEDS: methocarbamoL 500 MG TABLET PO STA (09:52)
[2024-02-07] MEDS: TRIAMCINOLONE 40 MG/ML VIAL MC STA (09:52)
[2024-02-07 10:55] VITALS: BP 133/64; O2SAT 96
== END 2024-02-07 10:51 | disposition home or self-care (01) ==
LOC: ED 08:16
DX: M51.26 Other intervertebral disc displacement, lumbar region (principal); M54.30 Sciatica, unspecified side
CPT/HCPCS: 20552; 96372; 99283; 99284; A9270; J1170

== ENCOUNTER 2024-02-14 10:39 | Emergency (ER) | payer OTHER ==
[2024-02-14 10:51] VITALS: BP 128/84; O2SAT 97
[2024-02-14] MEDS: LIDOCAINE PATCH 5% TOP STA (12:00)
[2024-02-14] MEDS: KETOROLAC 30 MG/ML VIAL IM STA (12:00)
[2024-02-14] MEDS: HYDROmorphone 0.5 MG/0.5 ML SYRINGE IM STA (12:01)
--- NOTE | 2024-02-14 12:07 | ED Physician Documentation ---
PD HPI BACK PAIN - Stated complaint Stated Complaint: LWR BACK PX - Chief complaint Chief Complaint: Back Pain - Additional information Additional information: 28-year-old male presents emergency department for lower back pain. Patient has had an MRI which shows bulging disks at L4-S1. He is already got a referral to neuro surge he has been taking medications which include hydrocodone, meloxicam, methocarbamol at home for pain and discomfort he has had no new injuries or falls or trauma to his lower back but said that he has been slowing down on taking his hydrocodone and starting to feel like he is having exacerbation of pain today. He says he thinks he is going to run out of his pain medications on Sunday and also was wondering about a possible medication refill for the medications he was given at his last ER visit.No incontinence of stool or urine. PD PAST MEDICAL HISTORY - Past Medical History Past Medical History: Yes Cardiovascular: None Respiratory: None Neuro: None Endocrine/Autoimmune: None GI: None : None HEENT: None Psych: Depression, Anxiety, ADD/ADHD Musculoskeletal: Chronic back pain Derm: None - Past Surgical History Past Surgical History: No HEENT: Tonsil/Adenoidectomy - Present Medications Home Medications: Ambulatory Orders Medication Instructions Recorded Confirmed HYDROcod/ACETAM 5/325 [[place] 5/325] 1 ea PO Q8H PRN #20 tablet 02/07/24 02/14/24 Lidocaine Patch 5% [Lidoderm Patch] 1 patch TOP DAILY PRN #10 patch 02/07/24 02/14/24 Meloxicam [Mobic] 7.5 mg PO BID 10 Days #20 tablet 02/07/24 02/14/24 Methylphenidate HCl [Concerta] 1 tab PO DAILY 02/07/24 02/14/24 methocarbamoL [Robaxin] 500 mg PO Q6H PRN #30 tablet 02/07/24 02/14/24 - Allergies Allergies/Adverse Reactions: Allergies Allergy/AdvReac Type Severity Reaction Status Date / Time No Known Drug Allergies Allergy Verified 02/14/24 12:20 - Social History Does the pt smoke?: No Smoking Status: Never smoker Does the pt drink ETOH?: Yes Does the pt have substance abuse?: No - Immunizations Immunizations are current?: Yes - POLST Patient has POLST: No PD ED PE NORMAL - Vitals Vital signs reviewed: Yes - General General: Alert and oriented X 3, No acute distress, Well developed/nourished - HEENT HEENT: Atraumatic, PERRL, EOMI - Neck Neck: Supple, no meningeal sign - Cardiac Cardiac: RRR - Back Back: No CVA TTP, No spinal TTP - Free text exam Free text exam: Neck and back are without deformity, external skin changes, or signs of trauma. Curvature of the cervical, thoracic, and lumbar spine are within normal limits. Bony features of the shoulders and hips are of equal height bilaterally. Posture is upright, gait is smooth, steady, and within normal limits although slow No tenderness noted on palpation of the spinous processes. Spinous processes are midline. Cervical, thoracic, and lumbar are not tender and are without spasm. paraspinal muscles on left lower back There is discomfort is noted with flexion, extension, and [id number] rotation of the Left paraspinal region, full range of motion is noted. Full range of motion including flexion, extension, and [id number] rotation of the thoracic and lumbar spine are noted and with discomfort. Straight leg raise test is positive to Left side. Decreased sensation to left lower extremity No clonus is noted. 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 Dorsi/plantar flexion is normal bilaterally. Results - Vitals Vitals: Vital Signs - 24 hr 02/14/24 10:45 Temperature 36.4 C L Heart Rate 77 Respiratory 15 Rate Blood Pressure 128/84 H O2 Saturation 97 Oxygen O2 Source Room air Departure - Departure Disposition: 01 Home, Self Care Clinical Impression: Chronic lower back pain Qualifiers: Back pain laterality: midline Sciatica presence: unspecified whether sciatica present Qualified Code(s): M54.50 - Low back pain, unspecified Condition: Stable Instructions: ED Back Care Tips, ED Spasm Back No Trauma Comments: Thank you for trusting us with your care. We have given you a Toradol shot as well as a Dilaudid shot here in the emergency department as we discussed and per your previous your discharge paperwork summary we cannot give pain medication refills here in the emergency department. Make sure that you do not take any more ibuprofen or meloxicam today and that you are drinking plenty of fluids going home. Follow-up with your primary care provider for ongoing physical therapy referral alternate between 20 minutes of ice 20 minutes of heat make sure that you do not go home and lay completely still make sure that you are still moving around and walking around so that your back does not get stiff again. Wishing you a speedy recovery. Discharge Date/Time: 02/14/24 12:52
== END 2024-02-14 12:52 | disposition home or self-care (01) ==
LOC: ED 10:39
DX: M54.50 Low back pain, unspecified (principal); G89.29 Other chronic pain
CPT/HCPCS: 96372; 99283; A9270; J1170